=== PATIENT | female | born 1985 | race Caucasian/White ===

== ENCOUNTER 2023-01-07 21:09 | Emergency (ER) | payer OTHER ==
[~2023-01-07] VITALS: Ht 167.6 cm; Wt 59.0 kg
--- NOTE | 2023-01-07 21:54 | NUR ---
BIBFRIEND FROM HOME C/O RLQ PAIN X 1 DAY "OVARIAN CYST BURST" HX ENDOMETRIOSIS. PT A/OX4. TOLERATING R/A WELL WITH NO RESP DISTRESS. AMB WITH STEADY GAIT. SAFETY MEASURES IN PLACE.
--- NOTE | 2023-01-07 22:02 | NUR ---
URINE SPECIMEN SENT TO LAB
--- NOTE | 2023-01-07 22:04 | NUR ---
YASH KERNS AT BEDSIDE
[2023-01-07 22:34] LABS: BILIRUBIN,URINE NEGATIVE (NEGATIVE); COLOR,URINE LIGHT YELLOW (YELLOW); LEUKOCYTE ESTERASE ,URINE NEGATIVE (NEGATIVE); NITRITE, URINE NEGATIVE (NEGATIVE); PROTEIN,URINE NEGATIVE (NEGATIVE); UGLUCOSE NEGATIVE (NEGATIVE); UROBILINOGEN,URINE 0.2 EU/dL (0.2)
[2023-01-07] MEDS ORDERED: MORPHINE SULFATE INJ 2 MG/ML DISP.SYRIN IV ONE (23:00)
[2023-01-07] MEDS ORDERED: ONDANSETRON HCL/PF - ER 4 MG/2 ML VIAL IV ONE (23:00)
[2023-01-07] MEDS ORDERED: MORPHINE SULFATE INJ 4 MG/ML DISP.SYRIN ONE (23:02)
[2023-01-07] MEDS ORDERED: ONDANSETRON HCL/PF 4 MG/2 ML VIAL ONE (23:02)
--- NOTE | 2023-01-07 23:05 | NUR ---
SILVER STEWARD AT PT'S BEDSIDE
[2023-01-07 23:11] LABS: BILIRUBIN,DIRECT 0.1 mg/dL (0.0-0.2); BILIRUBIN,TOTAL 0.2 mg/dL (0.2-1.0); CREATININE 0.6 mg/dL (0.6-1.3); POTASSIUM 3.8 mmol/L (3.5-5.1); TOTAL PROTEIN, SERUM 7.7 g/dL (6.4-8.2)
--- NOTE | 2023-01-07 23:15 | NUR ---
IV RAC #18G S/L; PATENT AND INTACT
[2023-01-07 23:18] LABS: BASOPHILS % (AUTO) 0.3 % (0.0-2.0); HEMATOCRIT 28 % (33-45); HEMOGLOBIN 8.5 g/dL (11.5-14.8); LYMPHOCYTES # (AUTO) 1.6 K/uL (0.8-4.8); LYMPHOCYTES % (AUTO) 23.6 % (20.0-44.0); MEAN CORPUSCULAR HGB CONC 30 g/dl (31.0-36.0); MEAN CORPUSCULAR VOLUME 70 fL (82-100); MONOCYTES # (AUTO) 0.3 K/uL (0.1-1.30); MONOCYTES % (AUTO) 4.7 % (2.0-12.0); NEUTROPHILS # (AUTO) 4.7 K/uL (1.8-8.9); NEUTROPHILS % (AUTO) 71.4 % (43.0-81.0); PLATELET COUNT (AUTO) 442 K/uL (150-450); RED BLOOD CELL COUNT(AUTO) 4.08 MIL/uL (4.0-5.2); WHITE BLOOD COUNT (AUTO) 6.6 K/uL (4.3-11.0)
[2023-01-07 23:42] LABS: LYMPHOCYTES % (MANUAL) 19 % (16-48); MONOCYTES % (MANUAL) 2 % (0-11.0); NEUTROPHILS % (MANUAL) 79 (42-76)
--- NOTE | 2023-01-08 00:07 | NUR ---
PT TAKEN TO CT VIA [facility]
--- NOTE | 2023-01-08 00:15 | NUR ---
PT RETURNED TO ER [address]
[2023-01-08] MEDS ORDERED: KETOROLAC TROMETHAMINE INJ 30 MG/ML VIAL ONE (00:29)
[2023-01-08] MEDS ORDERED: HYDROMORPHONE 1 MG/1 ML DISP.SYRIN IV ONE (00:30)
[2023-01-08] MEDS ORDERED: HYDROMORPHONE 1 MG/1 ML DISP.SYRIN ONE (00:30)
[2023-01-08] MEDS ORDERED: KETOROLAC TROMETHAMINE INJ 30 MG/ML VIAL IV ONE (00:30)
--- NOTE | 2023-01-08 00:56 | NUR ---
FOLLOWED UP [facility]. WILL CHECK RESULT AFTER AN HOUR.
[2023-01-08] MEDS ORDERED: IBUP-1955 PO (05:20)
[2023-01-08] MEDS ORDERED: HYDR-3972 PO (05:20)
--- NOTE | 2023-01-08 05:29 | NUR ---
Patient discharged to home in stable condition. RX Written and verbal after care instructions given. Patient verbalizes understanding of instruction. IV removed. Catheter intact and site benign. Pressure and 4x4 applied to site. No bleeding noted. pt ambulatory with a steady gait
[2023-01-08 05:31] VITALS: BP 115/72
== END 2023-01-08 05:32 | disposition home or self-care (01) ==
LOC: ER 21:24
DX: N83.209 Unspecified ovarian cyst, unspecified side (principal); R10.31 Right lower quadrant pain; R11.10 Vomiting, unspecified; D64.9 Anemia, unspecified
CPT/HCPCS: 99285; 74176; 96374; 76856; 96375 ×2; 85025; 80048; 80076; 84703; 81003; 36415; 87491; 87591; 85007; J2270; J2405 ×2; J1885; J1170